=== PATIENT | male | born 1980 | race Caucasian/White ===

== ENCOUNTER 2018-05-15 19:17 | Emergency (ER) | payer OTHER ==
[~2018-05-15] VITALS: Ht 177.8 cm; Wt 86.4 kg
[2018-05-15] MEDS ORDERED: METH4TAB28 PO (19:26)
[2018-05-15] MEDS ORDERED: VALA1TAB2 (19:26)
[2018-05-15] MEDS ORDERED: CEPH500C (19:26)
[2018-05-15] MEDS ORDERED: GABA-1171 (19:26)
[2018-05-15] MEDS ORDERED: CIPRODEX (19:26)
[2018-05-15] MEDS ORDERED: GABAPENTIN 100 MG CAP PO ONE (21:45)
[2018-05-15 21:54] LABS: BASO # 0.1 10^3/uL (0.0-0.2); BASO % 1.3 % (0.0-1.0); EOS # 0.2 10^3/uL (0.0-0.50); EOS % 3.8 % (0.0-3.0); HEMATOCRIT 44.3 % (42.0-52.0); HEMOGLOBIN 14.7 g/dl (13.5-17.5); LYMPH % 21.1 % (24.0-44.0); MEAN CORPUSCULAR HEMOGLOBIN 30.4 pg (27.0-33.0); MEAN CORPUSCULAR HGB CONC 33.2 g/dl (32.0-36.5); MEAN CORPUSCULAR VOLUME 91.7 fl (80.0-96.0); MONO # 0.7 10^3/uL (0.0-0.8); MONO % 13.8 % (0.0-5.0); NEUTROPHILS # 2.8 10^3/uL (1.8-7.7); NEUTROPHILS % 59.8 % (36.0-66.0); PLATELET COUNT, AUTOMATED 214 10^3/uL (150-450); RED BLOOD COUNT 4.83 10^6/uL (4.30-6.10); WHITE BLOOD COUNT 4.7 10^3/uL (4.0-10.0)
[2018-05-15 23:09] LABS: BLOOD UREA NITROGEN 12 MG/DL (7-18); C REACTIVE PROTEIN QUANTITATIV 0.51 MG/DL (0.00-0.30); CALCIUM LEVEL 8.4 MG/DL (8.5-10.1); CARBON DIOXIDE LEVEL 27 MEQ/L (21-32); CHLORIDE LEVEL 107 MEQ/L (98-107); CREATININE FOR GFR 1.18 MG/DL (0.70-1.30); GLOMERULAR FILTRATION RATE > 60.0 (>60); GLUCOSE, FASTING 98 MG/DL (70-100); POTASSIUM SERUM 3.9 MEQ/L (3.5-5.1); SODIUM LEVEL 141 MEQ/L (136-145)
[2018-05-15 23:35] VITALS: BP 137/94
[2018-05-15] MEDS ORDERED: ISOVUE-370 76% 100ML VIAL (Q9967) As Ordered ONE (23:43)
--- NOTE | 2018-05-16 00:15 | REPVR ---
EXAM: CT Maxillofacial With Contrast EXAM DATE/TIME: 05/15/2018 11:15 PM CLINICAL HISTORY: 38 years old, male; Signs and symptoms; Mass, lump, or swelling; Other: Right forehead, eye region; Additional info: Cellulitis, ? preseptal vs orbrital TECHNIQUE: Axial computed tomography images of the face with intravenous contrast. All CT scans at this facility use at least one of these dose optimization techniques: automated exposure control; mA and/or kV adjustment per patient size (includes targeted exams where dose is matched to clinical indication); or iterative reconstruction. Coronal and sagittal reformatted images were created and reviewed. CONTRAST: 75 ml of iso administered intravenously. COMPARISON: No relevant prior studies available. FINDINGS: Orbits: Retrobulbar fat of the orbits is normal bilaterally. Sinuses: Minimal right maxillary and to a lesser degree left maxillary and sphenoid sinus mucosal thickening. Bones/joints: Broad-based depression of the left lamina papyracea. Soft tissues: Mild subcutaneous edema of the right cheek and right periorbital region and right forehead. IMPRESSION: 1. Right facial and periorbital soft tissue swelling which may reflect cellulitis. This is preseptal in the periorbital region with preservation of retrobulbar fat. 2. Right maxillary and to lesser degree left maxillary and sphenoid sinus disease. 3. Broad-based depression of the left lamina papyracea consistent with old injury. 4. Otherwise negative CT maxillofacial. Electronically signed by: Nilson Holt On 05/16/2018 00:15:31 AM
[2018-05-16] MEDS ORDERED: CLINDAMYCIN 150 MG CAP PO ONE (00:30)
[2018-05-16] MEDS ORDERED: AUGMENTIN 875 MG TAB PO ONE (00:30)
[2018-05-16] MEDS ORDERED: AUGM875T28 PO (00:32)
[2018-05-16] MEDS ORDERED: CLIN150C14 PO (00:32)
== END 2018-05-16 01:01 | disposition home or self-care (01) ==
LOC: M ED 19:17
DX: L03.213 Periorbital cellulitis (principal); B02.39 Other herpes zoster eye disease; Z79.899 Other long term (current) drug therapy; Z79.2 Long term (current) use of antibiotics; Z79.52 Long term (current) use of systemic steroids
CPT/HCPCS: 70487; 80048; 85025; 86140; 87040; 99283; Q9967

== ENCOUNTER 2018-09-14 10:52 | Day surgery (SDC) | payer OTHER ==
[~2018-09-14] VITALS: Ht 177.8 cm; Wt 88.5 kg
[~2018-09-14 10:52] MED LIST: AUGM875T28 PO; CEPH500C; CIPRODEX; CLIN150C14 PO; GABA-1171; KP F1200 PO; LIDOCAINE 2% INJ 100 MG/5 ML SDV (FOR ANES.) As Ordered ONE; LR 1,000 ML IV ONE; METH4TAB28 PO; MIDAZOLAM INJ 2 MG/2 ML VIAL (J2250) As Ordered ONE; PROPOFOL 200 MG/20 ML VIAL As Ordered ONE; ROCURONIUM BROMIDE 50 MG/5 ML VIAL As Ordered ONE; VALA1TAB2; fentaNYL 250 MCG/5 ML INJECTION (J3010) As Ordered ONE
[2018-09-14] MEDS ORDERED: BUPIVACAINE HCL 0.5% 10 ML VIAL As Ordered ONE (13:53)
[2018-09-14] MEDS ORDERED: PROPOFOL 200 MG/20 ML VIAL As Ordered ONE (14:02)
[2018-09-14] MEDS ORDERED: ONDANSETRON 4MG/2ML VIAL (J2405) As Ordered ONE ×2 (16:56→17:13)
[2018-09-14] MEDS ORDERED: KETOROLAC 60 MG/2 ML VIAL (J1885) As Ordered ONE (16:56)
[2018-09-14] MEDS ORDERED: dexameTHASONE 4 MG/ML 1ML VIAL (J1100) As Ordered ONE (16:56)
[2018-09-14] MEDS ORDERED: METOCLOPRAMIDE INJ 10MG/2ML VIAL (J2765) As Ordered ONE (17:09)
[2018-09-14] MEDS ORDERED: LR 1,000 ML IV SCH ×2 (17:15→17:30)
--- NOTE | 2018-09-14 17:26 | REP ---
C-ARM VIEWS RIGHT ELBOW: Multiple C-Arm views right elbow are performed during biceps tendon repair. A metallic plate is seen in the region of the proximal radius. 24 seconds fluoroscopy time utilized. Electronically Signed by Alan Conway MD 09/18/2018 10:08 A
[2018-09-14] MEDS ORDERED: PERCOCET 5MG/325MG TAB PO PRN ×2 (17:30→19:30)
[2018-09-14] MEDS ORDERED: ONDANSETRON 4MG/2ML VIAL (J2405) IV PRN ×2 (17:30→19:30)
[2018-09-14] MEDS ORDERED: fentaNYL 100 MCG/2 ML INJECTION (J3010) IV PRN (17:30)
[2018-09-14] MEDS ORDERED: METOCLOPRAMIDE INJ 10MG/2ML VIAL (J2765) IV PRN (17:30)
[2018-09-14] MEDS ORDERED: MEPERIDINE INJ 25 MG/ML VIAL (J2175) IV PRN (17:30)
[2018-09-14 20:00] VITALS: BP 132/74
[2018-09-14 20:30] VITALS: BP 134/75
[2018-09-14 21:30] VITALS: BP 131/76
--- NOTE | 2018-09-14 21:41 | RO ---
DATE OF PROCEDURE: 09/14/2018 PREOPERATIVE DIAGNOSIS: Right distal biceps tendon rupture. POSTOPERATIVE DIAGNOSIS: High-grade right distal biceps tendon rupture. PROCEDURE: Right distal biceps tendon repair. SURGEON: Dr. Heriberto Koehler ORACLE DBA: Alea Ruff PA-C plus second assist ANESTHESIA: General. IV FLUIDS: Lactated Ringer's. ESTIMATED BLOOD LOSS: 5 mL. IMPLANTS: Arthrex distal biceps button. CLOSURE: Monocryl and Steri-Strips. INDICATIONS: The patient is a 38-year-old gentleman that sustained a right elbow injury. He did not seek care for about 2 weeks and then MRI revealed a high-grade partial thickness tear of the distal biceps. Clinically he had a positive Hook test and a deformity in the upper extremity consistent with a distal biceps tear. We discussed operative and nonoperative treatment, and he agreed to proceed with surgery after written informed consent was obtained. DESCRIPTION OF PROCEDURE: The patient was identified in the preoperative holding area. The right arm was marked by myself. He was brought to the operating room, placed supine on a well-padded operating room (OR) table. General anesthesia was induced. The right arm was positioned on a hand table. He received appropriate intravenous (IV) antibiotics within 1 hour of incision. The right arm was then prepped and draped in a normal sterile fashion with Chloraprep. Prior to incision, a time-out was performed per hospital protocol. A transverse incision was made with a 15 blade three fingerbreadths distal to the elbow flexion crease, subcu dissection with electrocautery and Metzenbaum scissors. The lateral antebrachial cutaneous nerve was identified and protected during the case. Superficial fascia was carefully opened with scissors and then the intermuscular plane was developed bluntly. Blunt finger dissection down to the radial tuberosity. The radial tuberosity was primarily bare; however, there was a small band of tendinous tissue still attached, corresponding to his MRI. This was traced proximally where the bulkier portion of the tendon seemed palpable. I was unable to identify the tendon through the distal incision, so I elected to make a second incision transversely just proximal to the elbow flexion crease. Dissection through the superficial fascia down to the biceps tendon. The muscle tendon junction was explored. Biceps tendon sheath tissue was opened. The tendon was then tracked distally and the lacertus fibrosis was found to still be intact. A Belén clamp was passed from the proximal incision in an antegrade fashion down to the radial tuberosity. The remaining tissue, which I would estimate was less than 20% of the tendon, though still attached to the radial tuberosity, was then sharply incised with a fresh 15 blade, turning this into a full-thickness tear. I then attempted to retrieve the tendon from the proximal incision; however, it was hung up by the lacertus. Further dissection around the distal stump, and this was grasped with a Belén clamp. I was able to obtain control of greater than 50% of the tendon; however, it did seem much thinner than normal. I further explored the muscle tendon junction, and I would was unable to palpate or visualize any other tendinous tissue proximally. And this raised suspicion for a high-grade distal biceps tendon tear with a partial muscle tendon junction tear. With a Belén clamp placed around the tendon distally and longitudinal traction applied, this did bring down the distal biceps muscle. Both incisions were then irrigated. The Arthrex distal biceps kit was opened and a running locking whipstitch placed with a FiberLoop. The tendon, again, was quite small. It was sized to a size 5 rather than a 7 which is more typical. Given this was a smaller tendon, I elected to just use a button, not the screw. With the forearm held in maximal supination and my assistants holding retractors, I then drilled the spade tip drill bit unicortically, taking care to get this as ulnar as possible on the tuberosity. The position was checked with the mini C-arm, found to be excellent. This was then advanced bicortically, and a 5 mm acorn reamer was then used to create a unicortical socket. I extensively irrigated the incision to remove all bony debris. Next, the sutures were loaded through the button per protocol. The button was passed through the drill hole on its clinical trial assistant. The button was flipped, the sutures toggled and this docked the tendon into the drill hole nicely. Mini C-arm used to obtain AP and lateral views, confirming the button was appropriately flipped and positioned. The socket was nicely filled with tendon. This was under good tension. I then used a curve-free needle to pass one limb of suture back through the tendon and then knots were tied by hand to secure the construct. Excess suture trimmed and discarded after I reconfirmed appropriate button position. I then extensively irrigated both incisions. Fascia was closed proximally with #2-0 Vicryl followed by a running Monocryl. Distally, the incision was closed, the deep fascia with #2-0 Vicryl, and great care taken not to injure the lateral antebrachial cutaneous nerve. A running Monocryl suture. I then injected 10 mL of 0.50% Marcaine without epinephrine for local anesthetic. I should have mentioned that I had inflated the sterile tourniquet about 20 minutes into the case after making both incisions. The tourniquet was let down after the deep fascia was closed but prior to the superficial fascia being closed, and there was excellent hemostasis. A sterile dressing was then applied. He was placed into a well-padded long arm posterior splint with a strut at 90 degrees. He was awoken from general anesthesia, transferred to the post-anesthesia care unit (PACU) in stable condition. In the PACU, he was able to fire extensor pollicis longus (EPL) and flexor pollicis longus (FPL) and IO. He will followup in 10 days for suture removal.
[2018-09-14] MEDS ORDERED: KETOROLAC 30 MG/ML VIAL (J1885) IV ONE (22:00)
[2018-09-14 22:30] VITALS: BP 116/70
[2018-09-14 23:33] VITALS: BP 116/65
[2018-09-15 00:13] VITALS: O2SAT 97
[2018-09-15 00:30] VITALS: BP 117/75
[2018-09-15 04:30] VITALS: BP 106/63
[2018-09-15] MEDS ORDERED: IBUPROFEN 800 MG TAB PO SCH (06:00)
[2018-09-15] MEDS ORDERED: PERC5TAB12 PO (07:11)
[2018-09-15] MEDS ORDERED: IBUP-1022 PO (07:11)
[2018-09-15 08:30] VITALS: BP 117/77
== END 2018-09-15 10:35 | disposition home or self-care (01) ==
LOC: M SDC 10:52 → M MS5PR 19:45 → M SDC 09-15 10:35
PROVIDERS: ATTEND Orthopaedic Surgery
DX: S46.291A Other injury of muscle, fascia and tendon of other parts of biceps, right arm, initial encounter (principal); Y93.9 Activity, unspecified; Y92.9 Unspecified place or not applicable
CPT/HCPCS: 24342; 76000; 96374; 96375; C1713; J0690; J1100; J1885; J2250; J2405; J2765; J3010

== ENCOUNTER 2025-03-16 14:27 | Emergency (ER) | payer BC, MEDICARE, OTHER ==
[~2025-03-16] VITALS: Ht 177.8 cm; Wt 96.9 kg
[~2025-03-16 14:27] MED LIST changes: +CIPR7.5D5; -CIPRODEX; -CLIN150C14 PO; +CLIN150C17 PO; +FOLIC ACID 1 MG TAB PO SCH; +IBUP600T42 PO; -LIDOCAINE 2% INJ 100 MG/5 ML SDV (FOR ANES.) As Ordered ONE; -LR 1,000 ML IV ONE; -METH4TAB28 PO; +METH4TAB8 PO; -MIDAZOLAM INJ 2 MG/2 ML VIAL (J2250) As Ordered ONE; +MULTIVITAMINS/MINERALS THERAP 1 TAB PO SCH; +PERC5TAB12 PO; -PROPOFOL 200 MG/20 ML VIAL As Ordered ONE; -ROCURONIUM BROMIDE 50 MG/5 ML VIAL As Ordered ONE; -VALA1TAB2; +VALA1TAB5; -fentaNYL 250 MCG/5 ML INJECTION (J3010) As Ordered ONE
[2025-03-16 14:43] VITALS: TEMP 97
[2025-03-16] MEDS: NS (Normal Saline) 0.9% 1,000 ML IV ONE (15:25)
[2025-03-16 15:34] LABS: BASO # 0.1 10^3/uL (0.0-0.2); BASO % 0.4 % (0.0-1.0); EOS # 0.1 10^3/uL (0.0-0.5); EOS % 0.6 % (0.0-3.0); LYMPH # 0.7 10^3/uL (1.5-5.0); LYMPH % 5.1 % (24.0-44.0); MONO # 0.7 10^3/uL (0.0-0.8); MONO % 4.9 % (2.0-8.0); NEUTROPHILS # 12.6 10^3/uL (1.5-8.5); NEUTROPHILS % 88.6 % (36.0-66.0); PLATELET COUNT, AUTOMATED 323 10^3/uL (150-450)
[2025-03-16 15:58] LABS: ETHYL ALCOHOL (ETHANOL) 0.035 % (0.000-0.010)
[2025-03-16 15:59] LABS: CALCIUM LEVEL 8.6 MG/DL (8.5-10.1); CARBON DIOXIDE LEVEL 25 MMOL/L (20-31); CHLORIDE LEVEL 102 MMOL/L (98-107); CK-MB VALUE MASS < 1.0 NG/ML (<3.6); CREATININE FOR GFR 1.27 MG/DL (0.70-1.30); GLOMERULAR FILTRATION RATE 71.0 (>60); MAGNESIUM LEVEL 2.0 MG/DL (1.8-2.4); POTASSIUM SERUM 5.1 MMOL/L (3.5-5.1); SODIUM LEVEL 141 MMOL/L (136-145)
[2025-03-16 16:01] LABS: FREE T4 1.40 NG/DL (0.89-1.76)
[2025-03-16 16:04] LABS: CPK CREATINE PHOSPHOKINASE 114 U/L (46-171)
[2025-03-16] MEDS ORDERED: ISOVUE-370 76% 100 ML VIAL As Ordered ONE (16:22)
[2025-03-16] MEDS ORDERED: THIAMINE 100 MG TAB PO SCH (16:45)
[2025-03-16] MEDS: ONDANSETRON 4MG/2ML VIAL IV ONE (16:51)
[2025-03-16 16:59] LABS: CK-MB VALUE MASS < 1.0 NG/ML (<3.6)
[2025-03-16 17:00] LABS: CPK CREATINE PHOSPHOKINASE 88 U/L (46-171)
[2025-03-16 17:34] LABS: ALT/SGPT 121 U/L (7.0-40); AST/SGOT 76 U/L (<34)
[2025-03-16 18:00] VITALS: BP 154/92
[2025-03-16 18:15] VITALS: O2SAT 94
[2025-03-16] MEDS ORDERED: ONDA-282 PO (18:26)
== END 2025-03-16 18:55 | disposition home or self-care (01) ==
LOC: M ED 14:27
DX: R55 Syncope and collapse (principal); R11.10 Vomiting, unspecified; K76.0 Fatty (change of) liver, not elsewhere classified; R91.1 Solitary pulmonary nodule; E78.5 Hyperlipidemia, unspecified; Z87.891 Personal history of nicotine dependence; R00.0 Tachycardia, unspecified
CPT/HCPCS: 70450; 71045; 71275; 74177; 80048; 80076; 82077; 82550; 82553; 83690; 83735; 84439; 84443; 84484; 85025; 93005; 93041; 94760; 96361; 96374; 96375; 99285; J2060; J2405; Q9967